=== PATIENT | male | born 1965 | race Caucasian/White ===

== ENCOUNTER → 2019-09-11 | Outpatient (REF) | payer OTHER | LOC: M LAB REF 12:48 | PROVIDERS: ATTEND Plastic Surgery Surgery of the Hand | DX: C44.311 Basal cell carcinoma of skin of nose (principal) ==

== ENCOUNTER 2019-09-26 09:03 | Observation (INO) | payer OTHER ==
[~2019-09-26] VITALS: Ht 172.7 cm; Wt 78.3 kg
[~2019-09-26 09:03] MED LIST: LR 1,000 ML IV ONE; ceFAZolin SOD 1 GM in D5W MINI-BAG PLUS 50 ML IV ONE
[2019-09-26] MEDS ORDERED: LIDOCAINE 2% INJ 100 MG/5 ML SDV (FOR ANES.) As Ordered ONE (09:10)
[2019-09-26] MEDS ORDERED: PROPOFOL 200 MG/20 ML VIAL As Ordered ONE (09:10)
[2019-09-26] MEDS ORDERED: fentaNYL 100 MCG/2 ML INJECTION (J3010) As Ordered ONE (09:10)
[2019-09-26] MEDS ORDERED: MIDAZOLAM INJ 2 MG/2 ML VIAL (J2250) As Ordered ONE (09:11)
[2019-09-26 09:31] LABS: HEMATOCRIT 46.3 % (42.0-52.0); HEMOGLOBIN 16.1 g/dl (13.5-17.5); MEAN CORPUSCULAR HEMOGLOBIN 33.3 pg (27.0-33.0); MEAN CORPUSCULAR HGB CONC 34.8 g/dl (32.0-36.5); MEAN CORPUSCULAR VOLUME 95.7 fl (80.0-96.0); PLATELET COUNT, AUTOMATED 333 10^3/uL (150-450); RED BLOOD COUNT 4.84 10^6/uL (4.30-6.10)
[2019-09-26] MEDS ORDERED: BACITRACIN OINT 30GM As Ordered ONE ×2 (10:08→14:26)
[2019-09-26] MEDS ORDERED: LIDOCAINE W/EPINEPHRINE 1% 20ML VIAL As Ordered ONE (10:09)
[2019-09-26] MEDS ORDERED: POVIDONE-IODINE 5% OPHTH PREP SOL 30ML As Ordered ONE ×2 (10:21→11:03)
[2019-09-26] MEDS ORDERED: ROCURONIUM BROMIDE 50 MG/5 ML VIAL As Ordered ONE ×2 (10:25→11:59)
[2019-09-26] MEDS ORDERED: TOBRADEX OPHTH OINT 3.5 GM As Ordered ONE (10:27)
[2019-09-26] MEDS ORDERED: fentaNYL 250 MCG/5 ML INJECTION (J3010) As Ordered ONE (11:05)
[2019-09-26] MEDS ORDERED: METOCLOPRAMIDE INJ 10MG/2ML VIAL (J2765) As Ordered ONE (11:25)
[2019-09-26] MEDS ORDERED: ONDANSETRON 4MG/2ML VIAL (J2405) As Ordered ONE (11:25)
[2019-09-26] MEDS ORDERED: KETOROLAC 60 MG/2 ML VIAL (J1885) As Ordered ONE (11:25)
[2019-09-26] MEDS ORDERED: dexameTHASONE 4 MG/ML 1ML VIAL (J1100) As Ordered ONE (11:25)
[2019-09-26] MEDS ORDERED: ePHEDrine SULFATE 25 MG/5 ML(5MG/ML) SYRINGE As Ordered ONE (12:21)
[2019-09-26] MEDS ORDERED: ceFAZolin 1GM INJ (J0690 PER 500MG) As Ordered ONE (13:20)
[2019-09-26] MEDS ORDERED: ACETAMINOPHEN 1000MG 100ML IV BTL (OFIRMEV) (J0131 PER 10MG) As Ordered ONE (14:10)
[2019-09-26] MEDS ORDERED: SUGAMMADEX SODIUM 500 MG/5 ML VIAL (BRIDION) As Ordered ONE (14:14)
[2019-09-26] MEDS ORDERED: DESFLURANE 240 ML INHALANT As Ordered ONE (14:21)
--- NOTE | 2019-09-26 15:02 | POST-OPPD ---
Postoperative Procedure Note Date Of Procedure: Sep 26, 2019 PREOPERATIVE DIAGNOSIS: Right nose malignant mass POSTOPERATIVE DIAGNOSIS: same FINDINGS: 2.5x4cm malignant mass right nose extending into right medial canthus PROCEDURE: Excision right nose malignant mass with advancement cheek and glabellar flaps closure. SURGEON: Dr Morales ANESTHESIA: General SPECIMENS: Right nose mass, suture at 12 o'clock (FS). Additional margines at 12 o'clock. ESTIMATED BLOOD LOSS: 25cc REPLACED: none DRAINS: none COMPLICATIONS: none POSTOPERATIVE CONDITION: stable NEREIDA MORALES DO Sep 26, 2019 15:02
[2019-09-26] MEDS ORDERED: LR 1,000 ML IV SCH ×2 (15:15→16:15)
[2019-09-26] MEDS ORDERED: PERCOCET 5MG/325MG TAB PO PRN ×2 (15:15→16:15)
[2019-09-26] MEDS ORDERED: HYDROMORPHONE HCL 0.5 MG/ 0.5 ML SYRINGE (J1170 PER 1) IV PRN (15:15)
[2019-09-26] MEDS ORDERED: fentaNYL 100 MCG/2 ML INJECTION (J3010) IV PRN (15:15)
[2019-09-26] MEDS ORDERED: KETOROLAC 30 MG/ML VIAL (J1885) IV PRN (15:15)
[2019-09-26] MEDS ORDERED: ONDANSETRON 4MG/2ML VIAL (J2405) IV PRN ×2 (15:15→16:15)
[2019-09-26 16:11] VITALS: BP 139/75
[2019-09-26 16:51] VITALS: BP 138/75
[2019-09-26 18:01] VITALS: BP 146/78
[2019-09-26 18:47] VITALS: BP 141/78
--- NOTE | 2019-09-26 20:38 | IPNPDOC ---
Subjective General Date/Time Seen The patient was seen on 09/26/19 at 20:33. Subject Chief Complaint/History The patient is a 54-year-old male admitted with a reason for visit of Basal Cell Carcinoma. S/p excision of Right nose malignant lesion, flap closure. POD 0. Doing well. NO complains. Current Medications Current Medications Current Medications Medications (Trade) Dose Ordered Sig/Myke Route PRN Reason Start Time Stop Time Status Last Admin Dose Admin Cefazolin Sodium 1 gm/Dextrose 50 ml @ 100 mls/hr Q8H IV 09/26/19 22:00 Fentanyl Citrate (Sublimaze) 25 mcg Q5MP PRN IV PAIN LEVEL 5-10 09/26/19 15:15 09/26/19 16:15 DC Hydromorphone HCl (Dilaudid) 0.4 mg Q5MP PRN IV PAIN LEVEL 4-7 09/26/19 15:15 09/26/19 16:15 DC Ketorolac Tromethamine (ToRADol) 30 mg ONCE PRN IV PAIN 09/26/19 15:15 09/26/19 16:15 DC Lactated Ringer's 1,000 ml @ 75 mls/hr [id number] IV 09/26/19 16:15 Lactated Ringer's 1,000 ml @ 100 mls/hr Q10H IV 09/26/19 15:15 09/26/19 16:15 DC 09/26/19 14:37 Ondansetron HCl (ZOFRAN INJection) 4 mg Q4H PRN IV NAUSEA 09/26/19 16:15 Ondansetron HCl (ZOFRAN INJection) 4 mg Q4HP PRN IV NAUSEA OR VOMITING 09/26/19 15:15 09/26/19 16:15 DC Oxycodone/ Acetaminophen (Percocet 5mg/ 325mg Tablet) 1 tab ASDIRECTED PRN PO PAIN LEVEL 1-4 09/26/19 15:15 09/26/19 16:15 DC Oxycodone/ Acetaminophen (Percocet 5mg/ 325mg Tablet) 1 tab Q6H PRN PO PAIN 09/26/19 16:15 Allergies Coded Allergies: No Known Allergies (Unverified , 09/26/19) Objective Physical Examination Examination GENERAL APPEARANCE:Patient seen, laying in bed, awake, alert, and oriented. Comfortable, in no acute distress. SKIN: Warm and moist. Right face flap viable. Post op ecchymosis under right eye, non expanding. Mild oozing from corner of the eye, mixed with tears. No active bleeding. Normal, symmetrical vision from both eyes. No pain. Incisions intact. HEENT: Normocephalic, atraumatic. NECK: Supple, no thyromegaly. No obvious jugular venous distention. LUNGS: Clear to auscultation bilaterally. No wheezing appreciated. HEART: No chest wall abnormalities. Regular rate and rhythm with no murmurs appreciated. Vital Signs Vital Signs Date Time Temp Pulse Resp B/P (MAP) Pulse Ox O2 Delivery O2 Flow Rate FiO2 09/26/19 18:47 98.7 79 20 141/78 (99) 96 Room Air 09/26/19 14:50 10 Laboratory Data Labs 24H Laboratory Tests 2 09/26/19 09:18: Nucleated Red Blood Cells % (auto) 0.0 CBC/BMP Laboratory Tests 09/26/19 09:18 Impression S/p excision basal cell lesion/mass with flap closure. POD 0 Doing well. Pain controlled Continue with right eye, flap monitoring. Light cool compress while awake Continue with antibiotics CBC in am Tobrax opht ointment to right periocular incisions. Plan / VTE VTE Prophylaxis Ordered?: Yes NEREIDA MORALES DO Sep 26, 2019 20:38
[2019-09-26 21:10] LABS: BASO % 0.2 % (0.0-1.0); HEMATOCRIT 41.3 % (42.0-52.0); HEMOGLOBIN 14.4 g/dl (13.5-17.5); LYMPH % 12.4 % (24.0-44.0); MEAN CORPUSCULAR HEMOGLOBIN 33.6 pg (27.0-33.0); MEAN CORPUSCULAR HGB CONC 34.9 g/dl (32.0-36.5); MEAN CORPUSCULAR VOLUME 96.5 fl (80.0-96.0); MONO # 0.7 10^3/uL (0.0-0.8); MONO % 4.2 % (0.0-5.0); NEUTROPHILS % 82.7 % (36.0-66.0); PLATELET COUNT, AUTOMATED 292 10^3/uL (150-450); RED BLOOD COUNT 4.28 10^6/uL (4.30-6.10); WHITE BLOOD COUNT 15.7 10^3/uL (4.0-10.0)
[2019-09-26 21:32] VITALS: BP 146/82
[2019-09-26] MEDS: TOBRAMYCIN 0.3% OPHTH OINT 3.5 GM OD SCH (21:34)
[2019-09-26] MEDS: ceFAZolin SOD 1 GM in D5W MINI-BAG PLUS 50 ML IV SCH (22:12)
[2019-09-27 01:44] VITALS: BP 139/67
[2019-09-27] MEDS: ceFAZolin SOD 1 GM in D5W MINI-BAG PLUS 50 ML IV SCH (05:32)
[2019-09-27 05:36] VITALS: BP 149/85
--- NOTE | 2019-09-27 07:32 | IPNPDOC ---
Subjective General Date/Time Seen The patient was seen on 09/27/19 at 07:28. Subject Chief Complaint/History The patient is a 54-year-old male admitted with a reason for visit of Basal Cell Carcinoma. S/p Excision malignant lesion with flap closure POD 1 Doing well. No complains. Current Medications Current Medications Current Medications Medications (Trade) Dose Ordered Sig/Myke Route PRN Reason Start Time Stop Time Status Last Admin Dose Admin Cefazolin Sodium 1 gm/Dextrose 50 ml @ 100 mls/hr Q8H IV 09/26/19 22:00 09/27/19 05:32 Fentanyl Citrate (Sublimaze) 25 mcg Q5MP PRN IV PAIN LEVEL 5-10 09/26/19 15:15 09/26/19 16:15 DC Hydromorphone HCl (Dilaudid) 0.4 mg Q5MP PRN IV PAIN LEVEL 4-7 09/26/19 15:15 09/26/19 16:15 DC Ketorolac Tromethamine (ToRADol) 30 mg ONCE PRN IV PAIN 09/26/19 15:15 09/26/19 16:15 DC Lactated Ringer's 1,000 ml @ 75 mls/hr [id number] IV 09/26/19 16:15 09/26/19 21:20 DC Lactated Ringer's 1,000 ml @ 100 mls/hr Q10H IV 09/26/19 15:15 09/26/19 16:15 DC 09/26/19 14:37 Ondansetron HCl (ZOFRAN INJection) 4 mg Q4H PRN IV NAUSEA 09/26/19 16:15 Ondansetron HCl (ZOFRAN INJection) 4 mg Q4HP PRN IV NAUSEA OR VOMITING 09/26/19 15:15 09/26/19 16:15 DC Oxycodone/ Acetaminophen (Percocet 5mg/ 325mg Tablet) 1 tab ASDIRECTED PRN PO PAIN LEVEL 1-4 09/26/19 15:15 09/26/19 16:15 DC Oxycodone/ Acetaminophen (Percocet 5mg/ 325mg Tablet) 1 tab Q6H PRN PO PAIN 09/26/19 16:15 Tobramycin Sulfate (Tobrex 0.3% Ophth Oint) 1 dose TID OD 09/26/19 21:00 09/26/19 21:34 Allergies Coded Allergies: No Known Allergies (Unverified , 09/26/19) Objective Physical Examination Examination GENERAL APPEARANCE:Patient seen, laying in bed, awake, alert, and oriented. Comfortable, in no acute distress. SKIN: Warm and moist. Flap is viable, warm. Good perfusion. HEENT: Normocephalic, atraumatic. Lanare palpebral conjunctiva, anicteric sclerae. Lips and mucosa appear moist. Right lower eyelid with post op ecchymosis, non expanding, soft. Mild tearing. No active bleeding. BULMARO, EOMI. NECK: Supple, no thyromegaly. No obvious jugular venous distention. LUNGS: Clear to auscultation bilaterally. No wheezing appreciated. HEART: No chest wall abnormalities. Regular rate and rhythm with no murmurs appreciated. Vital Signs Vital Signs Date Time Temp Pulse Resp B/P (MAP) Pulse Ox O2 Delivery O2 Flow Rate FiO2 09/27/19 05:36 98.2 72 20 149/85 (106) 95 Room Air 09/26/19 14:50 10 I&Os I&O- Last 24 Hours up to 6 AM 09/27/19 05:59 Intake Total 4965 ml Output Total 100 ml Balance 4865 ml Laboratory Data Labs 24H Laboratory Tests 2 09/26/19 09:18: Nucleated Red Blood Cells % (auto) 0.0 09/26/19 20:54: Nucleated Red Blood Cells % (auto) 0.0, Immature Granulocyte % (Auto) 0.5, Neutrophils (%) (Auto) 82.7H, Lymphocytes (%) (Auto) 12.4L, Monocytes (%) (Auto) 4.2, Eosinophils (%) (Auto) 0.0, Basophils (%) (Auto) 0.2, Neutrophils # (Auto) 13.0H, Lymphocytes # (Auto) 2.0, Monocytes # (Auto) 0.7, Eosinophils # (Auto) 0.0, Basophils # (Auto) 0.0 CBC/BMP Laboratory Tests 09/26/19 09:18 09/26/19 20:54 Impression Right nose/medial canthus malignant lesion/mass. S/p excision. Recovering well No pain No change in vision. Flaps viable Stable for discharge Post op instructions given to patient and . Continue with antibiotics topical and PO at home. F/up plastic surgery Monday. Plan / VTE VTE Prophylaxis Ordered?: Yes NEREIDA MORALES DO Sep 27, 2019 07:32
[2019-09-27] MEDS ORDERED: TOBR3OI OD (07:36)
[2019-09-27] MEDS ORDERED: KEFL500C17 PO (07:36)
[2019-09-27] MEDS: TOBRAMYCIN 0.3% OPHTH OINT 3.5 GM OD SCH (08:04)
--- NOTE | 2019-09-27 13:05 | RO ---
DATE OF OPERATION: 09/26/2019 PREOPERATIVE DIAGNOSIS: Right nose malignant mass. POSTOPERATIVE DIAGNOSIS: Right nose malignant mass. PROCEDURE: Excision right nose malignant mass with advancement cheek flap and a glabellar flap closure. ATTENDING SURGEON: Dr. Juan ANESTHESIA: General. SPECIMENS SENT: Right nose mass, suture at 12 o'clock frozen section and additional margins at 12 o'clock as a frozen section. BLOOD LOSS: 25 mL. There was no replacements. No drains. No complications. PROCEDURE: This is a 54-year-old male who has slowly growing mass on his right nose extending into his right medial canthus. The patient had a biopsy in my office and confirmation of basal cell carcinoma tumor its. It measures 2.5 x 4 cm in diameter and it is raised about 1/2 cm and it is hard. The patient had intermittent infections in that area. The CT scan is clear for invasion through deeper tissues and he has normal vision in that right eye. The patient is scheduled for excision of the right nose mass and reconstruction with a flap, possible skin graft. All of the risks and benefits and alternatives were discussed with the patient and the details and he is ready to proceed. On the day of surgery, we confirmed his diagnosis, confirmed the procedure with him and his family at the bedside, his and his daughter, and he is ready to proceed. He was brought into the operating room, placed in supine position. Preoperative antibiotics were given. Sequential stockings placed on the lower calves. General anesthesia was induced. He was prepped and draped in the usual sterile fashion. We started our procedure by remeasuring the tumor, confirming the size as 2.5 x 4 cm. 3 mm margins were outlined around the tumor and we started planning for resection. 0.5% lidocaine with epinephrine was infiltrated in the area surrounding the tumor and the cheek, and also in the inferior eyelid on the right side. We started resection on the inferior portion of the tumor, it is very vascular, going all the way to the muscle layer. So, careful dissection was done using blunt and sharp dissection and electrocautery as we went along, gradually raising the tumor to its superior margin. The 12 o'clock margin is almost adjacent to the medial canthus, however, the lacrimal apparatus was not invaded and it is operating properly and also the edges of the eyelids and the aperture were not affected as well. After the dissection was completed, hemostasis was obtained using electrocautery. The tumor was sent to pathology, sutures marking 12 o'clock. The first pathology came back with positive margins at 12 o'clock. All the rest of the margins are negative. An additional centimeter was taken superiorly extending into the glabellar portion of the resection and that dissection is coming back with negative margins. So, at this point we have started planning for the reconstruction and flap creation. In order to accommodate this, we have designed advancement cheek flap and also a glabellar flap for the superior portion of the defect. Started by raising the cheek flap. The incision is carried out into the nasal labial fold on the right side and hemostasis obtained using electrocautery and then careful dissection was done from medial to lateral. Also, the second incision was made on the subciliary line, and also he has a good amount of excess tissue and laxity on the lower eyelid which would be able to allow to cover the reconstruct of the lower eyelid as partially losing about 30% of lower eyelid is missing at that point on the lower lid. So, after the elevation is completed, and it is extending along the zygoma laterally. We have realigned the flap and advanced it medially and superiorly, which successfully eliminated the defect on the lower eyelid as well as the lateral nose without tension, so that flap was set in place and then we turned our glabellar flap which was also designed to cover the medial canthus area and superior portion of the medial canthus as well. That was turned inferiorly and sutured in place. All the flaps were sutured in place with #4-0 and #5-0 Monocryl sutures. The medial canthus itself, the tubercle, and the ligament is in good condition. It did not need to be repositioned. The inferior incision along the subciliary line was closed with #6-0 Plain gut sutures. Steri-Strips was placed on the nasal labial suture line and the rest of the incisions were covered with TobraDex ophthalmic antibiotic ointment. The patient was extubated in the operating room without any difficulties and transferred to the recovery room in stable condition. The visual test was done in the recovery room and the patient can see out of the right eye without any difficulties as well as his left eye. A small ice pack was placed in the recovery room to control the swelling of the right eye. BAILEE
== END 2019-09-27 09:10 | disposition home or self-care (01) ==
LOC: M SDC 09:03 → M MS5PR 16:00 → M SDC 16:12 → M MS5PR 16:13
PROVIDERS: ADMIT Plastic Surgery Surgery of the Hand; ATTEND Plastic Surgery Surgery of the Hand
DX: C44.311 Basal cell carcinoma of skin of nose (principal); K21.9 Gastro-esophageal reflux disease without esophagitis; F17.218 Nicotine dependence, cigarettes, with other nicotine-induced disorders
CPT/HCPCS: 14060; 36415; 85025; 85027; 88305; 96365; 96366; J0131; J0690; J1100; J1885; J2250; J2405; J2765; J3010